=== PATIENT | female | born 2000 | race Two or more races ===

== ENCOUNTER 2024-07-15 22:23 | Emergency (ER) | payer OTHER ==
[~2024-07-15] VITALS: Ht 165.1 cm; Wt 64.8 kg
[2024-07-15] MEDS ORDERED: DIPH25CA66 PO (23:01)
--- NOTE | 2024-07-15 23:01 | ED.PDOC ---
History of Present Illness(SKN HPI Comments PT PRESERNTED TO ED FOR LAPROSCOPIC SURICAL INCISION WOUND CHECK TO LEFT LADERAL ABDOMEN. PT STATED CONTINUOUS BLEEDING AT HOME. NO BLEEDING NOTED AT THIS TIME. ALL INCISION APPEAR WELL-PROXIMATED. 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, Medications, Allergies Allergies: Coded Allergies: No Known Drug Allergy (Verified Allergy, Unknown, 07/15/24) Home Meds Active Scripts Diphenhydramine Hcl (Benadryl Allergy) 25 Mg Cap, 1 CAP PO BID PRN for 5 Days, #10 CAP Prov:FRITZ MONCADA CUTTER IN 07/15/24 Information Source: Patient Past Medical History Immunizations: Current Medical History: Denies Operations: Denies Constitutional: denies: chills, diaphoresis, fatigue, fever, malaise, sweats, weakness, others EENTM: denies: blurred vision, double vision, ear bleeding, ear discharge, ear drainage, ear pain, ear ringing, eye pain, eye redness, hearing loss, mouth pain, mouth swelling, nasal discharge, nose bleeding, nose congestion, nose pain, photophobia, tearing, throat pain, throat swelling, voice changes, others Respiratory: denies: cough, hemoptysis, orthopnea, SOB at rest, shortness of breath, SOB with excertion, stridor, wheezing, others Cardiovascular: denies: chest pain, dizzy spells, diaphoresis, Dyspnea on exe rtion, edema, irregular heart beat, left arm pain, lightheadedness, palpitations, PND, syncope, others Gastrointestinal: denies: abdomen distended, abdominal pain, blood streaked bowels, constipated, diarrhea, dysphagia, difficulty swallowing, hematemesis, melena, nausea, poor appetite, poor fluid intake, rectal bleeding, rectal pain, vomiting, others Genitourinary: denies: abnormal vagina bleeding, burning, dyspareunia, dysuria, flank pain, frequency, hematuria, incontinence, pain, , vagina discharge, urgency, others Neurological: denies: dizziness, fainting, headache, left sided numbness, left sided weakness, numbness, paresthesia, pre-existing deficit, right sided numbness, right sided weakness, seizure, speech problems, tingling, tremors, weakness, others Musculoskeletal: denies: back pain, gout, joint pain, joint swelling, muscle pain, muscle stiffness, neck pain, others Integumetry: reports: wounds; denies: bruises, change in color, change in hair/nails, dryness, laceration, lesions, lumps, rash, others Allergic/Immunocompromised: denies: Difficulty Healing, Frequent Infections, Hives, Itching, others Hematologic/Lymphatic: denies: anemia, blood clots, easy bleeding, easy bruising, swollen glands, others Endocrine: denies: excessive hunger, excessive sweating, excessive thirst, excessive urination, flushing, intolerance to cold, intolerance to heat, unexplained weight gain, unexplained weight loss, others Psychiatric: denies: anxiety, bipolar disorder, depression, hopeless, panic disorder, schizophrenia, sleepless, suicidal, others Physical Exam General Appearance: No Apparent Distress, Normal HEENT: Pharynx Normal Neck: Full Range of Motion, Non-Tender Respiratory: Lungs Clear, No Respiratory Distress, Normal Breath Sounds Cardiovascular: No Murmur, Normal Peripheral Pulses, Regular Rate/Rhythm Breast Exam: Deferred Gastrointestinal: No Organomegaly, Non Tender, No Pulsatile Mass, Normal Bowel Sounds, Soft Genitalia: Deferred Pelvic: Deferred Rectal: Deferred Extremities: Normal capillary refill, Normal inspection, Normal range of motio n, Non-tender, No pedal edema Musculoskeletal : Apperance: Normal Neurologic: Alert, senior mechanical design engineer II-XII nml as Tested, No Motor Deficits, Normal Affect, Normal Mood, No Sensory Deficits Cerebellar Function: Normal Reflexes: Normal Skin: Dry, Normal Color, Warm, Wounds (SURGICAL SITE FREE OF ERYTHEMA OR DRAINAGE NO NOTED BLEEDING) Lymphatic: No Adenopathy Was a procedure done? Was a procedure done?: No Differential Diagnosis (INTG) Differential Diagnosis: Cellulitis, Hematoma Differential Diagnosis: Abscess X-Ray, Labs, Meds, VS Vital Signs Date Time Temp Pulse Resp B/P (MAP) Pulse Ox O2 Delivery O2 Flow Rate FiO2 07/15/24 23:05 98.5 81 16 130/81 (97) 98 98.5 X-Ray, Labs, Meds, VS Comment PHYSICAL EXAM GROSSLY BENIGN. SURGICAL SITE APPEARS TO BE HEALING WELL. ICE PATIENT HAD CONTINUE TO MONITOR FOLLOW UP WITH HER SCHEDULED POST SURGICAL APPOINTMENT. ER RETURN PRECAUTIONS GIVEN PATIENT INDICATED UNDERSTANDING AND AGREES WITH DISCHARGE PLAN OF CARE. Time of 1ST Reevaluation: 22:30 Reevaluation 1ST: Unchanged Patient Education/Counseling: Diagnosis, Treatment, Prognosis, Need For Follow Up Family Education/Counseling: No Family Present Departure 1 Departure Time of Disposition: 23:00 Impression: Primary Impression: Problem involving surgical incision Disposition: 01 HOME / SELF CARE / HOMELESS Condition: Stable e-Prescriptions Diphenhydramine Hcl (Benadryl Allergy) 25 Mg Cap 1 CAP PO BID PRN for 5 Days, #10 CAP Prov: FRITZ MONCADA 07/15/24 Discharged With: Self Critical Care Note Critical Care Time?: No Stability Stability form required: FRITZ Peng Jul 15, 2024 23:01
[2024-07-15 23:05] VITALS: BP 130/81; PULSE 81; RESP 16; TEMP 98.5; O2SAT 98
== END 2024-07-15 23:25 | disposition home or self-care (01) ==
LOC: EDBD 22:23 → ER 22:23
DX: Z48.01 Encounter for change or removal of surgical wound dressing (principal)